=== PATIENT | female | born 1950 | race Caucasian/White ===

== ENCOUNTER → 2022-07-06 12:28 | Outpatient (BNVA) | payer MEDICARE, OTHER, SELFPAY | PROVIDERS: Family Provider Nurse Practitioner Family; PCP Nurse Practitioner Family; Visit Provider Internal Medicine Cardiovascular Disease | DX: I10 Essential (primary) hypertension (principal); R00.0 Tachycardia, unspecified; R07.89 Other chest pain; R60.9 Edema, unspecified | CPT/HCPCS: 99213 ==

== ENCOUNTER → 2023-07-06 13:40 | Outpatient (BNVA) | payer MEDICARE, OTHER, SELFPAY | PROVIDERS: Family Provider Nurse Practitioner Family; PCP Nurse Practitioner Family; Visit Provider Internal Medicine Cardiovascular Disease | DX: I10 Essential (primary) hypertension (principal); E78.2 Mixed hyperlipidemia; R00.0 Tachycardia, unspecified; R06.02 Shortness of breath; M79.89 Other specified soft tissue disorders | CPT/HCPCS: 99214 ==

== ENCOUNTER → 2024-07-11 13:41 | Outpatient (BNVA) | payer MEDICARE, SELFPAY | PROVIDERS: Family Provider Nurse Practitioner Family; PCP Nurse Practitioner Family; Visit Provider Internal Medicine Cardiovascular Disease | DX: I25.10 Atherosclerotic heart disease of native coronary artery without angina pectoris (principal); E78.2 Mixed hyperlipidemia; I10 Essential (primary) hypertension; R00.0 Tachycardia, unspecified | CPT/HCPCS: 99214 ==

== ENCOUNTER → 2025-07-29 10:32 | Outpatient (BNVA) | payer MEDICARE, OTHER, SELFPAY | PROVIDERS: Family Provider Nurse Practitioner Family; PCP Nurse Practitioner Family; Visit Provider Internal Medicine Cardiovascular Disease | DX: R07.9 Chest pain, unspecified (principal); R06.02 Shortness of breath; Z79.01 Long term (current) use of anticoagulants; R53.83 Other fatigue; N18.9 Chronic kidney disease, unspecified | CPT/HCPCS: 36415; 80048; 83880; 84443; 85025; 93005; 99215 ==

== ENCOUNTER 2025-08-25 08:44 | Outpatient (CLI) | payer MEDICARE, OTHER, SELFPAY ==
--- NOTE | 2025-08-25 | ECG_ITS ---
[facility] Test Date: 2025-08-25 Pat Name: Tram Willoughby Department: Room: Gender: Female [employer] Sales Representative: : 1950 Requested By: Edgard Watts Order Number: [id number] Jesu MD: Sloan Negrete M.D. Interpretive Statements LEXISCAN: Procedure: At the baseline, the blood pressure was 125/74 mmHg with a heart rate of 78 bpm. The electrocardiogram showed normal sinus rhythm, normal axis with normal ST and T's. The Lexiscan was infused over a period of 20 seconds. A total of 0.4 mg of Lexiscan was infused. The stress phase was continued for a total of 5 minutes. Heart rate was at the end of stress phase was 102 bpm and a blood pressure of 128/72 mmHg. The EKG at the peak infusion revealed normal sinus rhythm with no significant ST-T wave changes. Sestamibi was injected 20 seconds after the Lexiscan infusion. Blood pressure at the end of recovery phase was 123/72 mmHg with a heart rate of 97 bpm. Conclusion: 1. Normal EKG response to Lexiscan infusion 2. No Lexiscan induced chest pain or cardiac arrhythmia. 3. Normal blood pressure and heart rate response. 4. Sestamibi/sestamibi perfusion scan pending; see separate report. Electronically Signed On 08-30-2025 20:11:51 CDT by Sloan Negrete M.D. [email or web address]
[2025-08-25 09:00] VITALS: BMI 28.3
--- NOTE | 2025-08-25 09:06 | NMCV_ITS ---
NM leon perf SPECT r/s* [id number] Tram Willoughby Age: 74 Gender: F : 1950 Exam Date: 08/25/2025 09:34 Ordering Phys: Edgard Watts MD ([email or web address]) Technologist: LYNNE Jo Exam Location: [facility] Indications: cp STRESS TEST [facility] IMAGE PROTOCOL Rest/Stress 1 Lexiscan Day Radiopharmaceutical Dose (mCi) Administration Site Administered by Rest: Tc-99m 10.4 IV LYNNE Jo Sestamibi Stress:Tc-99m 32.6 IV Madelyn Montoya GATE OPERATOR Sestamibi Rest: 25-Aug-2025 60 Discovery 630 Stress: 25-Aug-2025 30 Discovery 630 0.4mg Lexiscan. Images obtained in supine and prone position. SPECT RESULTS Technical Quality: Good Raw Data Analysis: Normal Image Corrections: No attenuation or motion correction applied Summed Stress Score: 3 Summed Rest Score: 7 Summed Difference Score: 0 PERFUSION FINDINGS Small sized area of fixed perfusion defect seen in inferolateral wall. This resolves on prone imaging. No evidence of ischemia. FUNCTIONAL RESULTS (calculated via Gated SPECT) Stress Image LV EF (%): 77 Stress EDV (mL):62 TID: 0.91 Stress ESV (mL):14 FUNCTIONAL FINDINGS: There is normal left ventricular systolic function. IMPRESSIONS 1. Attenuation artifact seen in left circumflex artery territory. No evidence of ischemia 2. LV systolic function is normal Sloan Negrete MD (Electronically Signed) Final Date: 25 August 2025 12:22 S
[2025-08-25 11:28] VITALS: BP 124/78; PULSE 68
--- NOTE | 2025-08-25 14:15 | USCV_ITS ---
Tram Willoughby Age: 74 Gender: F : 1950 Exam Date: 08/25/2025 09:25 Ordering Phys: Edgard Watts MD ([email or web address]) Technologist: Exam Location: [facility] [place] Indication: cp BP: 138 / 74 HR: 86 Rhythm: Sinus Technical Quality: Adequate MEASUREMENTS (Male / Female) Normal Values 2D ECHO LV Diastolic Diameter PLAX 4.3 cm 4.2 - 5.9 / 3.9 - 5.3 cm IVS Diastolic Thickness 1.1 cm 0.6 - 1.0 / 0.6 - 0.9 cm IVS Systolic Thickness 1.4 cm LVPW Diastolic Thickness 1.1 cm 0.6 - 1.0 / 0.6 - 0.9 cm LVPW Systolic Thickness 1.2 cm LVOT Diameter 2.0 cm LV Ejection Fraction 2D Teich 64.4 % LV Ejection Fraction MOD 4C 66.6 % LV Ejection Fraction MOD 2C 65.2 % LV Ejection Fraction 2C AL 67.0 % LA Diameter 3.2 cm RA Systolic Volume 4C AL 25.8 ml RA Systolic Volume 4C MOD 24.2 ml LA Sys Volume AL 54.3 cm cubed LA Sys Volume Index AL 29.7 cm cubed/m squared Aorta at Sinotubular Diameter 2.3 cm IVC Diameter 1.3 cm M-MODE LA Ao Ratio MM 1.1 AV Cusp Separation MM 2.4 cm DOPPLER AV Peak Velocity 161.0 cm/s LVOT Peak Velocity 100.0 cm/s AV Area Cont Eq vti 2.3 cm squared AV Area Cont Eq pk 1.9 cm squared MV Peak Velocity 147.0 cm/s MV Area PHT 4.1 cm squared Mitral E to A Ratio 0.7 TR Peak Velocity 81.0 cm/s TR Peak Gradient 2.6 mmHg PV Peak Velocity 107.0 cm/s FINDINGS Left Ventricle Normal left ventricular size and systolic function, EF 67%. No regional wall motion abnormalities. Grade I/IV diastolic dysfunction (abnormal relaxation filling pattern), normal to mildly elevated filling pressures. Right Ventricle Normal right ventricular size and systolic function. Right Atrium Normal right atrial size. Left Atrium Mildly increased left atrial size. IA Septum Appears to be intact with no evidence of any ASD or PFO by color-flow Doppler exam Mitral Valve Moderate mitral valve regurgitation. Aortic Valve Thickened aortic valve. [id number] aortic valve regurgitation. Tricuspid Valve Mild tricuspid valve regurgitation. Estimated pulmonary artery peak systolic pressure 21 mmHg Pulmonic Valve Pulmonic valve not well visualized. Pericardium No pericardial effusion. Aorta Normal aortic annulus size. IVC Inferior vena cava not visualized. CONCLUSIONS Normal left ventricular size and systolic function, EF 67%. No regional wall motion abnormalities. Grade I/IV diastolic dysfunction (abnormal relaxation filling pattern), normal to mildly elevated filling pressures. Mildly increased left atrial size. Moderate mitral valve regurgitation. Thickened aortic valve. [id number] aortic valve regurgitation. Mild tricuspid valve regurgitation. Estimated pulmonary artery peak systolic pressure 21 mmHg There is no pericardial effusion. There are no intracardiac masses. Compared to the study from 12/06/2018, there is slight worsening of the mitral and aortic regurgitation Dr Edgard Watts MD FAC (Electronically Signed) Final Date: 31 August 2025 19:19 S
== END 2025-08-25 08:45 | disposition home or self-care (01) ==
LOC: CDL 08:47
PROVIDERS: Family Provider Nurse Practitioner Family; PCP Nurse Practitioner Family; Visit Provider Internal Medicine Cardiovascular Disease
DX: R07.9 Chest pain, unspecified (principal); R06.02 Shortness of breath; R06.09 Other forms of dyspnea; R93.1 Abnormal findings on diagnostic imaging of heart and coronary circulation; I51.7 Cardiomegaly; I34.0 Nonrheumatic mitral (valve) insufficiency; I35.8 Other nonrheumatic aortic valve disorders; I35.1 Nonrheumatic aortic (valve) insufficiency; I07.1 Rheumatic tricuspid insufficiency
CPT/HCPCS: 36415; 78452; 93017; 93306; 96374; A9500; J2785

== ENCOUNTER → 2025-10-22 15:13 | Outpatient (BNVA) | payer MEDICARE, OTHER, SELFPAY | PROVIDERS: Family Provider Nurse Practitioner Family; PCP Nurse Practitioner Family; Visit Provider Internal Medicine Cardiovascular Disease | DX: I25.10 Atherosclerotic heart disease of native coronary artery without angina pectoris (principal); I10 Essential (primary) hypertension; E78.5 Hyperlipidemia, unspecified; R07.89 Other chest pain; R00.0 Tachycardia, unspecified; R06.02 Shortness of breath; R53.83 Other fatigue | CPT/HCPCS: 99214 ==